=== PATIENT | male | born 1960 | race Caucasian/White ===

== ENCOUNTER 2020-08-13 11:42 | Inpatient (IN) | payer OTHER ==
[~2020-08-13] VITALS: Ht 182.9 cm; Wt 89.2 kg
[~2020-08-13 11:42] MED LIST: LISHYD1012 PO; SIMV10 PO; Zantac150 MG PO
[2020-08-13] MEDS ORDERED: ATORVASTATIN CA20 MG PO (12:04)
[2020-08-13] MEDS ORDERED: LISINOPRIL-HCT1 EACH PO (12:04)
[2020-08-13] MEDS ORDERED: ZOLPIDEM TARTRA10 MG PO (12:05)
[2020-08-13 12:28] LABS: BASOPHILS ABSOLUTE AUTO 0.07 K/mm3 (0.00-0.23); BASOPHILS PERCENT AUTO 1 % (0-2); EOSINOPHILS ABSOLUTE AUTO 0.88 K/mm3 (0.00-0.68); EOSINOPHILS PERCENT AUTO 8 % (0-6); Hemoglobin 14.3 g/dL (13.5-17.5); IMMATURE GRAN ABSOLUTE AUTO 0.05 K/mm3 (0.00-0.10); IMMATURE GRAN PERCENT AUTO 0 % (0-1); LYMPHOCYTES ABSOLUTE AUTO 2.32 K/mm3 (0.84-5.20); LYMPHOCYTES PERCENT AUTO 20 % (21-46); MONOCYTES ABSOLUTE AUTO 0.77 K/mm3 (0.16-1.47); MONOCYTES PERCENT AUTO 7 % (4-13); Mean Corpuscular HGB 31.9 pg (26.0-34.0); Mean Corpuscular HGB Conc 33.3 g/dL (31.5-36.5); Mean Corpuscular Volume 96 fL (80-100); NEUTROPHILS ABSOLUTE AUTO 7.59 K/mm3 (1.96-9.15); NEUTROPHILS PERCENT AUTO 65 % (41-73); Platelet Count 339 K/mm3 (150-400); RDW Coefficient Variation 12.5 % (11.7-14.2); RDW Standard Deviation 44.5 fL (35.1-46.3); Red Blood Cell Count 4.48 M/mm3 (4.30-5.90); White Blood Cell Count 11.68 K/mm3 (4.00-11.30)
[2020-08-13 12:48] LABS: Alanine Aminotransfer (ALT/SGP 29 U/L (12-78); Albumin, Blood 3.4 g/dL (3.4-5.0); Albumin/Globulin Ratio 0.8 (0.8-1.8); Alk Phos 80 U/L (50-136); Anion Gap 6 mmol/L (6-16); Aspartate Aminotrans (AST/SGOT 17 U/L (12-37); Bilirubin, Total 0.3 mg/dL (0.1-1.0); Blood Urea Nitrogen 15 mg/dL (8-24); Bun/Creatinine Ratio 21.2 (12.0-20.0); CO2, Blood 28 mmol/L (21-32); Calcium, Blood 9.6 mg/dL (8.5-10.1); Chloride, Blood 105 mmol/L (98-108); Creatinine, Blood 0.71 mg/dL (0.60-1.20); Globulin, Blood 4.5 g/dL (2.2-4.0); Glomerular Filtration Rate >60 (60-); Glucose, Blood 159 mg/dL (70-99); Sodium, Blood 139 mmol/L (136-145); Total Protein, Blood 7.9 g/dL (6.4-8.2)
[2020-08-13 15:29] LABS: Source, Urine Clean Catch
[2020-08-13 15:36] LABS: Appearance, Urine Clear (Clear); Bilirubin, Urine Neg (Neg); Blood, Urine 1+ (Neg); Color, Urine Yellow (P-Yellow); Glucose Qualitative, Urine Neg (Neg); Ketones, Urine Neg (Neg); Leukocyte Esterase, Urine 1+ (Neg); Nitrite, Urine Neg (Neg); Protein, Urine 1+ (Neg); Specific Gravity, Urine 1.005 (1.003-1.022); Urobilinogen, Urine NORM (Normal); pH, Urine 6.5 (5.0-8.0)
[2020-08-13 16:12] LABS: Bacteria Few /hpf; Squamous Epithelial Cells Rare /hpf (Few); White Blood Cells, Urine 0-2 /hpf (0-5)
[2020-08-13 16:27] LABS: Influenza A, PCR Negative (NEGATIVE); Influenza B, PCR Negative (NEGATIVE); Resp Syncytial Virus, PCR Negative (NEGATIVE); SARS-Cov-2 (COVID-19) PCR, MMC Negative (NEGATIVE)
--- NOTE | 2020-08-13 16:52 | NUR ---
08/13/20 1652 Keith Warner PT RECIEVED ANTIBIOTICS IN THE ER PRIOR TO ARRIVAL TO OR. CONFIRMED WITH DR CARRASCO.
--- NOTE | 2020-08-13 20:20 | NUR ---
PT ARRIVED TO FLOOR FROM PACU. PT DROWSY AND RESTLESS, RESPONDS TO VERBAL STIMULI. TEMP AND HR ELEVATED. PT DENIES CP/PRESSURE. LUNGS DIM IN BASES, 5L02 NC IN PL[address], PLAN TO TITRATE TO RA PT ULISES. TAMARA DRESSING INTACT, STOMA BEEFY RED W/SCANT SS DRNG IN BAG. LAPIDARY APPRENTICE SUMANTH UP PT EDUCATED ON USE, IVF RUNNING PER ORDERS. PT ORIENTED TO ROOM/CALL LIGHT, WILL MONITOR AND TX PER ORDERS.
[2020-08-13] MEDS ORDERED: IBUP400 PO (21:20)
--- NOTE | 2020-08-13 22:50 | NUR ---
PAIN: PT IS CONT TO STRUGGLE W/PAIN DESPITE USING APPLIANCE TECHNICIAN. PT RATES PAIN 7-8/10, RESP SHALLOW, SATS MID 90'S ON 4LNC. HR TACHY-LOW 100-1'TEENS. ATTEMPTED BREATHING EXERCISES AND NON PHARM METHODS W/MIN RELIEF. DR CARRASCO UPDATED, PT PAIN, APPLIANCE TECHNICIAN SETTINGS AND VITALS REV. NEW ORDERS REC.
[2020-08-14 04:02] LABS: BASOPHILS ABSOLUTE AUTO 0.09 K/mm3 (0.00-0.23); BASOPHILS PERCENT AUTO 1 % (0-2); Hematocrit 37.9 % (37.0-53.0); Hemoglobin 12.6 g/dL (13.5-17.5); LYMPHOCYTES PERCENT AUTO 4 % (21-46); MONOCYTES ABSOLUTE AUTO 0.69 K/mm3 (0.16-1.47); MONOCYTES PERCENT AUTO 4 % (4-13); Mean Corpuscular HGB 31.7 pg (26.0-34.0); Mean Corpuscular HGB Conc 33.2 g/dL (31.5-36.5); Mean Corpuscular Volume 96 fL (80-100); Mean Platelet Volume 8.7 fL (9.1-12.4); Platelet Count 317 K/mm3 (150-400); RDW Coefficient Variation 12.7 % (11.7-14.2); RDW Standard Deviation 44.8 fL (35.1-46.3); Red Blood Cell Count 3.97 M/mm3 (4.30-5.90); White Blood Cell Count 17.82 K/mm3 (4.00-11.30)
[2020-08-14 04:05] LABS: EOSINOPHILS PERCENT AUTO 0 % (0-6); IMMATURE GRAN ABSOLUTE AUTO 0.09 K/mm3 (0.00-0.10); IMMATURE GRAN PERCENT AUTO 1 % (0-1); NEUTROPHILS ABSOLUTE AUTO 16.25 K/mm3 (1.96-9.15); NEUTROPHILS PERCENT AUTO 91 % (41-73)
[2020-08-14 04:23] LABS: BAND PERCENT MAN 21 % (0-8); BASOPHILS PERCENT MAN 0 % (0-2); EOSINOPHILS PERCENT MAN 0 % (0-6); LYMPHOCYTES ABSOLUTE MAN 0.53 K/mm3 (0.84-5.20); LYMPHOCYTES PERCENT MAN 3 % (21-46); METAMYELOCYTE ABSOLUTE MAN 0.17 K/mm3 (0.00-0.00); METAMYELOCYTE PERCENT MAN 1 % (0-0); MONOCYTES ABSOLUTE MAN 0.17 K/mm3 (0.16-1.47); MONOCYTES PERCENT MAN 1 % (4-13); NEUTROPHILS ABSOLUTE MAN 16.92 K/mm3 (1.96-9.15); SEG NEUTROPHILS PERCENT MAN 74 % (41-73); TOTAL CELLS COUNTED 100
[2020-08-14 04:25] LABS: Anion Gap 8 mmol/L (6-16); Blood Urea Nitrogen 13 mg/dL (8-24); Bun/Creatinine Ratio 16.8 (12.0-20.0); CO2, Blood 24 mmol/L (21-32); Calcium, Blood 8.3 mg/dL (8.5-10.1); Chloride, Blood 105 mmol/L (98-108); Creatinine, Blood 0.77 mg/dL (0.60-1.20); Glomerular Filtration Rate >60 (60-); Glucose, Blood 222 mg/dL (70-99); Potassium, Blood 4.4 mmol/L (3.5-5.5); Sodium, Blood 137 mmol/L (136-145)
--- NOTE | 2020-08-14 06:35 | NUR ---
POD 1 S/P COLECTOMY+COLOSTOMY. PT VSS IMPROVED, PT AFEBRILE THIS AM, HR TRENDING 90'S, SATS 90% ON 3LNC. PT REMAINS PAINFUL, RATES PAIN 6-7/10 BUT DOES APPEAR MORE COMFORTABLE THIS AM. VALIUM GIVEN X2 FOR SPASMS, PT SLEPT FOR APPX 2 HRS AFTER MED GIVEN. ABD FIRM/DISTENDED, STOMA WNL, BT MORE ACTIVE THIS AM, ONLY SCANT SS DRNG FROM OSTOMY, NO FLATUS. PT HAD NO C/O N/V. TAMARA DRESSING INTACT W/SMALL AMT SS DRNG. STOLL PATANT DRNG YELLOW URINE. CIWA MAX 6 THIS SHIFT. PT UP OOB ONCE, ULISES FAIR. IVF AND ABX CONT PER ORDERS, PT USING GLASS BEVELLER APPROPRIATELY, CONT OX IN PLACE.
--- NOTE | 2020-08-14 16:43 | NUR ---
SUMMARY: PT IS POD1 SIGMOID COLECTOMY. NO ACUTE CHANGE TODAY. VSS, PT HAS BEEN DROWSY TODAY BUT AWAKENS TO VOICE EASILY. SURGICAL SITE WNL. STOLL DRAINING. NO GAS OR OUTPUT NOTED FROM OSTOMY, APPLIANCE IS SECURE. PT ABLE TO AMBULATE TO RECLINER TODAY WITH 1 ASSIST AND FWW. DILAUDID LEAD DRIVER IS INFUSING, PT REPORTS THAT IT IS MANAGING PAIN BETTER THAN THE FENTANYAL. RESPIRATIONS ARE SHALLOW, I.S. AND DEEP BREATHE ENCOURAGED, CONTINUIOUS BI OX IN PLACE. NO ACUTE CONCERNS AT THIS TIME, WILL CTM AND REPORT TO NOC RN.
[2020-08-15 04:15] LABS: BASOPHILS ABSOLUTE AUTO 0.06 K/mm3 (0.00-0.23); BASOPHILS PERCENT AUTO 0 % (0-2); EOSINOPHILS ABSOLUTE AUTO 0.05 K/mm3 (0.00-0.68); EOSINOPHILS PERCENT AUTO 0 % (0-6); Hematocrit 37.6 % (37.0-53.0); Hemoglobin 12.6 g/dL (13.5-17.5); IMMATURE GRAN PERCENT AUTO 2 % (0-1); LYMPHOCYTES ABSOLUTE AUTO 1.17 K/mm3 (0.84-5.20); LYMPHOCYTES PERCENT AUTO 7 % (21-46); MONOCYTES ABSOLUTE AUTO 0.55 K/mm3 (0.16-1.47); MONOCYTES PERCENT AUTO 3 % (4-13); Mean Corpuscular HGB 32.7 pg (26.0-34.0); Mean Corpuscular HGB Conc 33.5 g/dL (31.5-36.5); Mean Corpuscular Volume 98 fL (80-100); Mean Platelet Volume 8.7 fL (9.1-12.4); NEUTROPHILS ABSOLUTE AUTO 15.36 K/mm3 (1.96-9.15); NEUTROPHILS PERCENT AUTO 88 % (41-73); Platelet Count 334 K/mm3 (150-400); RDW Standard Deviation 46.4 fL (35.1-46.3); Red Blood Cell Count 3.85 M/mm3 (4.30-5.90); White Blood Cell Count 17.49 K/mm3 (4.00-11.30)
[2020-08-15 04:27] LABS: Anion Gap 7 mmol/L (6-16); Blood Urea Nitrogen 14 mg/dL (8-24); CO2, Blood 28 mmol/L (21-32); Chloride, Blood 103 mmol/L (98-108); Creatinine, Blood 0.82 mg/dL (0.60-1.20); Glomerular Filtration Rate >60 (60-); Glucose, Blood 134 mg/dL (70-99); Phosphorus, Blood 2.6 mg/dL (2.5-4.9); Potassium, Blood 3.8 mmol/L (3.5-5.5); Sodium, Blood 138 mmol/L (136-145)
--- NOTE | 2020-08-15 07:37 | NUR ---
POD 2 S/P COLECTOMY+COLOSTOMY. PT VSS T/O NIGHT. 4L O2 IN [place] TO KEEP SATS >90%. PT USING I/S AT BEDSIDE, COUGH MORE PRODUCTIVE THIS AM. NO CHANGE IN DRNG ON TAMARA DRESSING; SEAL AND SX INTACT. SMALL AMT SS DRNG FROM OSTOMY APPLIANCE; ABD DISTENDED, BT HYPO, NO FLATUS YET. PT ULISES ICE CHIPS, NO C/O N/V. PAIN BETTER MANAGED W/DILAUDID CLASSIFICATION CONTROL CLERK, VALIUM GIVEN X1. STOLL PATANT DRNG DARK YELLOW URINE. PT STOOD UP TO SIDE OF BED X2, ULISES FAIR. CIWA MAX 3 THIS SHIFT. IVF AND ABX CONT PER ORDERS.
--- NOTE | 2020-08-15 17:42 | NUR ---
SHIFT SUMMARY PT POD 2 COLECTOMY W/COLOSTOMY. SMALL AMT SANGUINEOUS FLUID PRESENT IN BAG, NO GAS, STOMA PINK. PAIN MANAGED WITH DILAUDID EXTRUSION BENDER, RATES PAIN 3/10 T/O SHIFT. CIWA SCORE 3. PT UP TO CHAIR 1 PERSON MOD ASSIST WITH LINES. STOLL PATENT, DRAINING RUST COLORED URINE. IVF RUNNING PER EMAR. PT NPO W/ICE CHIPS AT THIS TIME.
--- NOTE | 2020-08-16 07:57 | NUR ---
DILAUDID FACULTY DEAN CONTINUOUS DOSE DC'D PER DR CARRASCO ORDER R/T SEDATION.
--- NOTE | 2020-08-16 09:40 | NUR ---
PT WITH INCREASED ANXIETY/AGGITATION THIS AM. CIWA 4. PT MEDICATED WITH 5MG VALIUM PER EMAR PER PT REQUEST.
--- NOTE | 2020-08-16 10:25 | NUR ---
PT AMBULATED IN HALLWAY USING FWW W/SBA FROM STAFF. PT HAS SOME SOB W/EXCERTION, O2 SAT 94% ON RA PRIOR TO STARTING WALK, 88% ON RETURN TO ROOM. 1L NC APPLIED, SATS STABLE 92%.
--- NOTE | 2020-08-16 18:22 | NUR ---
SHIFT SUMMARY PT POD 3 COLECTOMY W/OSTOMY PLACEMENT. PAIN MANAGED WITH DEMAND SURVEY SUPERINTENDENT. ABD DISTENDED WITH SCANT AMT SANGUINOUS OUTPUT FROM OSTOMY , 0 GAS OUTPUT, DENIES NAUSEA. PT AMBULATED IN HALLWAY TWICE THIS SHIFT WITH STAFF, UP TO CHAIR. PT HAS HAD AN INCREASE IN ANXIETY/AGGITATION-CIWA 5, MEDICATED WITH VALIUM PER EMAR. IV ABX AND FLUIDS PER EMAR. NPO WITH SMALL AMTS ICE CHIPS.
--- NOTE | 2020-08-17 03:20 | NUR ---
SHIFT SUMMARY: PT POD#4 FOR A SIGMOID COLECTOMY W/OSTOMY. ABD REMAINS DISTENDED AND FIRM. ABSENT BT THROUGHOUT. SCANT AMOUNT OF SANGUINOUS DRG IN BAG. NO FLATUS THIS SHIFT. PT ENCOURAGED TO AMBULATE, HOWEVER STATES THAT IT IS DIFFICULT D/T IV AND STOLL CATHETER. PT REMINDED THAT STAFF IS AVAILABLE TO ASSIST. UP IN ROOM INDEPENDENTLY. PT NPO EXCEPT FOR ICE CHIPS. DENIES N/V. PT CONCERNED ABOUT LACK OF NUTRITION THE PAST WEEK. O2 88-89% ON RA IN BEGINNING OF SHIFT. 3LO2 VIA NC APPLIED. O2 NOW 94-95%. PT TACHY AT TIMES RANGING FROM 110-115. CIWA BETWEEN 2-5. PT ANXIOUS AND SOMEWHAT AGITATED FIRST HALF OF SHIFT. MILD TREMORS NOTED. PT REFUSING LIBRIUM AND REPORTS HE IS ALREADY GETTING ENOUGH MEDICATIONS. PAIN BEING MANAGED WITH DILAUDID ART SPECIALIST. IVF INFUSING PER ORDERS. STOLL DRAINING DARK YELLOW URINE. 475CC EMPTIED.
[2020-08-17 05:47] LABS: BASOPHILS ABSOLUTE AUTO 0.04 K/mm3 (0.00-0.23); BASOPHILS PERCENT AUTO 0 % (0-2); Hemoglobin 12.9 g/dL (13.5-17.5); LYMPHOCYTES ABSOLUTE AUTO 1.18 K/mm3 (0.84-5.20); LYMPHOCYTES PERCENT AUTO 9 % (21-46); MONOCYTES ABSOLUTE AUTO 0.72 K/mm3 (0.16-1.47); MONOCYTES PERCENT AUTO 5 % (4-13); Mean Corpuscular HGB 31.5 pg (26.0-34.0); Mean Corpuscular HGB Conc 33.9 g/dL (31.5-36.5); Mean Platelet Volume 8.5 fL (9.1-12.4); Platelet Count 380 K/mm3 (150-400); RDW Coefficient Variation 12.6 % (11.7-14.2); RDW Standard Deviation 43.2 fL (35.1-46.3); Red Blood Cell Count 4.09 M/mm3 (4.30-5.90); White Blood Cell Count 13.44 K/mm3 (4.00-11.30)
[2020-08-17 05:48] LABS: EOSINOPHILS ABSOLUTE AUTO 0.15 K/mm3 (0.00-0.68); EOSINOPHILS PERCENT AUTO 1 % (0-6); IMMATURE GRAN ABSOLUTE AUTO 0.12 K/mm3 (0.00-0.10); IMMATURE GRAN PERCENT AUTO 1 % (0-1); Mean Corpuscular Volume 93 fL (80-100); NEUTROPHILS ABSOLUTE AUTO 11.23 K/mm3 (1.96-9.15); NEUTROPHILS PERCENT AUTO 84 % (41-73)
[2020-08-17 06:08] LABS: Anion Gap 11 mmol/L (6-16); Blood Urea Nitrogen 9 mg/dL (8-24); Bun/Creatinine Ratio 13.8 (12.0-20.0); CO2, Blood 27 mmol/L (21-32); Calcium, Blood 9.2 mg/dL (8.5-10.1); Chloride, Blood 98 mmol/L (98-108); Creatinine, Blood 0.65 mg/dL (0.60-1.20); Glomerular Filtration Rate >60 (60-); Glucose, Blood 128 mg/dL (70-99); Potassium, Blood 3.5 mmol/L (3.5-5.5); Sodium, Blood 136 mmol/L (136-145)
--- NOTE | 2020-08-17 07:10 | NUR ---
pt sleeping wakes to verbal stimuli req to eat no flatus talked about having gum or hard candy until he has gas
--- NOTE | 2020-08-17 09:32 | NUR ---
pt stated he had no nausea before large emesis sitting up on edge of the bed dr guevara by earlier and encouraged pt to get a ngt do to the lg amt of abd dist of the pt only have occ belching pt's dad kaela also called update given
--- NOTE | 2020-08-17 11:18 | NUR ---
PT STATED NO EMESIS SINCE THIS AM MEDS GIVEN SCHED PT KEEPS GOING FROM SITTING ON EDGE OF THE BED TO LAYING
--- NOTE | 2020-08-17 15:00 | NUR ---
DR CARRASCO PLACED NGT PT HAD 300 ML EMESIS HAD ADDITONAL 1500 ML IN CANNISTER X2
--- NOTE | 2020-08-17 18:58 | NUR ---
ENCOURAGED PT TO GET OOB INTO CHAIR WITH NGT
--- NOTE | 2020-08-17 21:17 | NUR ---
Vitals taken at 1999, the oxygen was reported to be 20%, was false and is recharted at 90%.
[2020-08-18 05:42] LABS: BASOPHILS ABSOLUTE AUTO 0.04 K/mm3 (0.00-0.23); BASOPHILS PERCENT AUTO 0 % (0-2); EOSINOPHILS ABSOLUTE AUTO 0.43 K/mm3 (0.00-0.68); EOSINOPHILS PERCENT AUTO 4 % (0-6); Hematocrit 33.7 % (37.0-53.0); Hemoglobin 11.5 g/dL (13.5-17.5); IMMATURE GRAN ABSOLUTE AUTO 0.13 K/mm3 (0.00-0.10); IMMATURE GRAN PERCENT AUTO 1 % (0-1); LYMPHOCYTES ABSOLUTE AUTO 1.07 K/mm3 (0.84-5.20); LYMPHOCYTES PERCENT AUTO 10 % (21-46); MONOCYTES ABSOLUTE AUTO 0.76 K/mm3 (0.16-1.47); MONOCYTES PERCENT AUTO 7 % (4-13); Mean Corpuscular HGB 31.4 pg (26.0-34.0); Mean Corpuscular HGB Conc 34.1 g/dL (31.5-36.5); Mean Corpuscular Volume 92 fL (80-100); Mean Platelet Volume 8.6 fL (9.1-12.4); NEUTROPHILS ABSOLUTE AUTO 8.62 K/mm3 (1.96-9.15); NEUTROPHILS PERCENT AUTO 78 % (41-73); Platelet Count 378 K/mm3 (150-400); RDW Coefficient Variation 12.7 % (11.7-14.2); RDW Standard Deviation 42.8 fL (35.1-46.3); Red Blood Cell Count 3.66 M/mm3 (4.30-5.90); White Blood Cell Count 11.05 K/mm3 (4.00-11.30)
[2020-08-18 06:01] LABS: Anion Gap 6 mmol/L (6-16); Blood Urea Nitrogen 7 mg/dL (8-24); CO2, Blood 29 mmol/L (21-32); Calcium, Blood 8.5 mg/dL (8.5-10.1); Chloride, Blood 100 mmol/L (98-108); Glomerular Filtration Rate >60 (60-); Glucose, Blood 153 mg/dL (70-99); Potassium, Blood 3.3 mmol/L (3.5-5.5); Sodium, Blood 135 mmol/L (136-145)
--- NOTE | 2020-08-18 06:39 | NUR ---
SUMMARY PT WITH MINIMAL COMPLIANCE REGARDING REPOSITIONING IN BED AND PULMONARY TOILET.LS DIMINISHED AND LOW GRADE TEMP TONIGHT.CONT TO ENC AND DISCUSSED RISKS.ALSO DISCUSSED IMPORTANCE OF SKIN CARE AND RISK PT AGAIN ALLOWING MINIMAL CARE.DID ALLOW THIS RN AND BUSINESS OBJECTS ARCHITECT TO REPOSITION TO L SIDE X1 AND PLACE MEPILEX TO SACRUM/COCCYX DUE TO MILD REDNESS AND A SCRATCH NOTED.PT VERB EXPECTS NG TUBE OUT TODAY ALTHOUGH ABD GREATLY DISTENDED WITH NO BTS AND NG OUTPUT THIS SHIFT 1400ML.
--- NOTE | 2020-08-18 07:56 | NUR ---
REPOSITIONING PT WAS ABLE TO USE HIS LEGS TO ASSIST STAFF TO SCOOT HIM UP IN BED. PT WAS ENCOURAGED TO USE THAT STRENGTH TO REPOSITIONG T/O THE DAY TO PREVEN SKIN BREAKDOWN. WILL CONTINUE TO MONITOR AND ASSIST WITH POSITIONING NEEDED.
--- NOTE | 2020-08-18 08:33 | NUR ---
patient gave permission to give care on 08/18/20.
--- NOTE | 2020-08-18 19:07 | NUR ---
SHIFT SUMMARY PT IS POD#4 FROM SIGMOID COLECTOMY. NG TUBE REMAINS IN PLACE. PT DENIES PASSING FLATUS, BOWEL SOUNDS HYPOACTIVE. PT HAS AMBULATED WITH STAND BY ASSIST IN THE HALWAYS. PAIN MANAGED WITH COMPUTERIZED TABLE CUTTER AT THIS TIME. VSS. WILL MONITOR UNTIL REPORT TO ONCOMING RN.
--- NOTE | 2020-08-19 07:53 | NUR ---
STOLL REMOVED PROCEDURE EXPLAINED TO PATIENT. STOLL CATHETER REMOVED AT [address] CARRASCO'S ORDER. PT TOLERATED. WILL MONITOR FOR VOID.
--- NOTE | 2020-08-19 08:12 | NUR ---
SUMMARY PT REFUSES TO REPOSITION IN BED, BUT OCC SITS ON EDGE OF BED AND AMBULATE IN ROOM.CONT WITH LARGE VOLUME OUT NG. HAS BROWN STOOL VIA OSTOMY.STOLL PATENT. PT C/O BACK PAIN AND WAS OFFERED EGGCRATE MATTRESS, BUT REFUSED. ALSO ENC OOB AND OR RECLINER CHAIR BUT REEFUSED.STATES HE WANTS HIS ORCHID TRANSPLANTER TO BE CHANGED TO HIS PREVIOUS CONTINUOUS MODE.I DISCUSSED NARCOTICS SLOWING EFFECT ON INTESTINES.PT APPEARING DISINTERESTED IN THIS INFORMATION. I ADVISED HIM I WILL MAKE NOTE OF HIS REQUEST IN CHART,AND ALSO HAVE DAY RN ADVISE DOCTOR OF HIS REQUEST ON ROUNDS BUT NOT LIKELY TO OBTAIN THIS ORDER.
--- NOTE | 2020-08-19 13:12 | NUR ---
OSTOMY APPLIANCE CHANGED PT'S OSTOMY APPLIANCE BEGAN TO LEAK UNDER TAMARA DRESSING. DRESSING WAS REMOVED WOUND CLEANSED. SKIN AROUND STOMA CLEANSED. SKIN BARRIER APPLIED. NEW OSTOMY APPLIANCE AND DRESSING APPLIES. 2 3/4 OVAL OSTOMY APPLIANCE USED WITH NO NEED FOR ADJUSTMENTS.
--- NOTE | 2020-08-19 14:05 | NUR ---
NG TUBE CLAMPED. WILL MONITOR FOR NAUSEA.
--- NOTE | 2020-08-20 04:23 | NUR ---
SHIFT SUMMARY POD#7. AAOX4. DISCOMFORT CONTROLLED WITH DILAUDID PRIMER EXPEDITOR AND DRIER. NO NAUSEA/EMESIS. ABD INCISION WITH TAMARA C/D/I. OSTOMY CHANGED YESTARDAY PER DAY SHIFT RN, NO OUTPUT THIS SHIFT. ABD DISTENDED/FIRM. NGT CLAMPED THIS SHIFT, TOLERATING SIPS CLEARS. IVF + ABX PER ORDERS. PT RESTING WELL THIS NOC SHIFT. PT NEEDS ENCOURAGEMENT TO AMBULATE TODAY. NO ACUTE CHANGES OVER NIGHT. CURRENTLY PT RESTING IN BED WITH CALL LIGHT IN REACH.
[2020-08-20 09:21] LABS: Hemoglobin 11.8 g/dL (13.5-17.5); Mean Corpuscular HGB 31.2 pg (26.0-34.0); Mean Corpuscular HGB Conc 32.8 g/dL (31.5-36.5); Mean Corpuscular Volume 95 fL (80-100); Mean Platelet Volume 8.7 fL (9.1-12.4); Platelet Count 458 K/mm3 (150-400); RDW Coefficient Variation 12.7 % (11.7-14.2); RDW Standard Deviation 44.8 fL (35.1-46.3); Red Blood Cell Count 3.78 M/mm3 (4.30-5.90); White Blood Cell Count 10.38 K/mm3 (4.00-11.30)
[2020-08-20 09:28] LABS: Anion Gap 5 mmol/L (6-16); Blood Urea Nitrogen 6 mg/dL (8-24); Bun/Creatinine Ratio 8.7 (12.0-20.0); CO2, Blood 28 mmol/L (21-32); Calcium, Blood 9.1 mg/dL (8.5-10.1); Chloride, Blood 102 mmol/L (98-108); Creatinine, Blood 0.69 mg/dL (0.60-1.20); Glomerular Filtration Rate >60 (60-); Glucose, Blood 135 mg/dL (70-99); Potassium, Blood 3.8 mmol/L (3.5-5.5); Sodium, Blood 135 mmol/L (136-145)
--- NOTE | 2020-08-20 18:40 | NUR ---
SHIFT SUMMARY PT A&OX4, POD7 SIG COL - JUDIE ARNIE, /OSTOMY W/FLATUS & 400 MLS BROWN OUT THIS SHIFT. NG TUBE W/900 OUT THIS SHIFT. PT TAKING IN ICE CHIPS/SIPS/CLEAR ENSURE/POPSICLES. PAIN MANAGED WITH DILAUDID TELEPHONE ANSWERER. IVF@100 MLS/HR. PT AMBULATED IN HALLWAY X2. VOIDING WELL, URINAL. WILL REPORT TO ONCOMING NOC RN.
--- NOTE | 2020-08-21 04:11 | NUR ---
SHIFT SUMMARY POD#8 SIGMOID COLECTOMY. AAOX4. DISCOMFORT CONTROLLED WITH DILAUDID TEXTILE BAG SEWER. NO NAUSEA/EMESIS. ABD INCISION WITH JUDIE MANAGER LAND C/D/I. OSTOMY SECURE WITH MODERATE AMOUNTS OF LIQUID BROWN OUT + INCREASING AMOUNTS OF GAS. ABD DISTENDED, PT REPORTING DECREASED OVER LAST 12 HRS. IVF + ABX PER ORDERS. PT UP AMBULATING IN HALLS THIS NOC SHIFT, TOLERATED WELL. PT WITH MINIMAL REST THIS NOC SHIFT, WILL ENCOURAGE REST FOR REMAINDER OF SHIFT.
[2020-08-21 05:13] LABS: Anion Gap 7 mmol/L (6-16); Blood Urea Nitrogen 5 mg/dL (8-24); CO2, Blood 28 mmol/L (21-32); Chloride, Blood 99 mmol/L (98-108); Creatinine, Blood 0.71 mg/dL (0.60-1.20); Glomerular Filtration Rate >60 (60-); Glucose, Blood 120 mg/dL (70-99); Potassium, Blood 3.3 mmol/L (3.5-5.5); Sodium, Blood 134 mmol/L (136-145)
--- NOTE | 2020-08-21 15:57 | NUR ---
SHIFT SUMMARY PT A&OX4, VSS/RA, TELE SB @ 56 BPM. POD8 SIG COL W/OSTOMY, MOD AMT STOOL OUT THIS SHIFT; PT EMPTIED OSTOMY BAG ON HIS OWN. NG TUBE OUT/DENIES N&V/ULISES PO CLEAR LIQUID DIET, ABD MOD DISTENDED. AMBULATING IN ROOM/HALLWAY. VOIDING WELL. PAIN MANAGED WITH CASUALTY INSURANCE CLAIM ADJUSTER-DILAUDID. WILL REPORT TO ONCOMING NOC RN.
--- NOTE | 2020-08-22 04:56 | NUR ---
SHIFT SUMMARY POD#9. AAOX4. DISCOMFORT CONTROLLED WITH DILAUDID WINDOW DRAPER. NO NAUSEA/EMESIS. ABD INCISION WITH JUDIE CLEAN/APPROXIMATED. OSTOMY SECURE WITH LARGE AMOUNTS OF LIQUID SOFT GREEN OUT. INDEPENDENT IN ROOM + OUT IN HALLS AMBULATING. ABD DISTENSION CONTINUES, PT REPORTINGS FEELING "BETTER" THIS AM. NEW IV THIS SHIFT. PT ANXIOUS R/T PAIN CONTROL AT HOME, DECREASED ANXIETY WITH CONVERSATION. PT RESTING INTERMITTENTLY THIS AM.
--- NOTE | 2020-08-22 11:39 | NUR ---
AMBULATING IN O[facility]
--- NOTE | 2020-08-22 17:15 | NUR ---
SUMMARY NO ACUTE CHANGES T/O SHIFT. PT SALINE LOCKED AND CHANGED TO PO PAIN MEDS. PAIN SEEMS ADEQUATELY CONTROLLED PER ORDERS. TOLERATED SMALL AMOUNT REGULAR FOOD FOR BREAKFAST AND LUNCH. AMBULATES INDEPENDENTLY IN HALLS. CHANGED APPLIANCE W/PT TODAY, EDUCATING ON PROCESS. PT EMPTING AND BURPING APPLIANCE INDEPENDENTLY. CALL LIGHT IN REACH.
[2020-08-23] MEDS ORDERED: Percocet 5-3251 EACH PO (09:41)
--- NOTE | 2020-08-23 10:35 | NUR ---
discharged DC'D IV, CATHETER INTACT. REVIEWED DC INSTRUCTIONS W/PT; SEEMED UNINTERESTED. WHEN ADVISED ON EDUCATIONAL RESOURCES ONLINE FOR OSTOMIES, PT STATED "I KNOW ALL ABOUT IT". MEDICATED PER ORDERS FOR PAIN. PROVIDED 3 SETS OF OSTOMY CHANGES AND SUPPLIES. PT LEFT UNIT IN WC W/POSSESSIONS, SUPPLIES AND DC PAPERWORK IN HAND TO RIDE WAITING OUTSIDE.
== END 2020-08-23 10:44 | disposition home or self-care (01) | DRG 853 ==
LOC: ER 11:42 → SURS 11:43
PROVIDERS: Emergency Medicine; Surgery; ADMIT Surgery
PROC: 0DTN0ZZ Resection of Sigmoid Colon, Open Approach (ICD-10-PCS; principal; 2020-08-13 14:15)
PROC: 0D1M0Z4 Bypass Descending Colon to Cutaneous, Open Approach (ICD-10-PCS; 2020-08-13 14:15)
DX: A41.9 Sepsis, unspecified organism (principal); K65.9 Peritonitis, unspecified; K57.20 Diverticulitis of large intestine with perforation and abscess without bleeding; N32.1 Vesicointestinal fistula; E78.5 Hyperlipidemia, unspecified; F17.210 Nicotine dependence, cigarettes, uncomplicated; I10 Essential (primary) hypertension; Z20.822 Contact with and (suspected) exposure to COVID-19; E87.6 Hypokalemia; K66.8 Other specified disorders of peritoneum
CPT/HCPCS: 0241U; 36415; 36416; 71045; 74177; 80048; 80053; 81001; 83605; 83690; 83735; 84100; 85025; 85027; 87040; 87086; 88307; 93005; 93010; 94762; 96361; 96365-59; 96375; 96376; 97110; 97116; 97162; 97165; 97530; 97535; 99285-25; A9270; J1100; J1170; J1650; J1885; J2250; J2405; J2543; J2704; J2710; J3010; J3360; J3411; J3475; J3480; J7030; J7042; J7120; Q9967

== ENCOUNTER 2020-12-27 12:51 | Day surgery (SDC) | payer OTHER ==
[~2020-12-27] VITALS: Ht 182.9 cm; Wt 79.6 kg
[~2020-12-27 12:51] MED LIST changes: +ATORVASTATIN CA20 MG PO; +IBUP400 PO; +LISINOPRIL-HCT1 EACH PO; +Percocet 5-3251 EACH PO; +ZOLPIDEM TARTRA10 MG PO
== END 2020-12-27 14:51 | disposition home or self-care (01) ==
LOC: ORSCSDS 12:51
PROVIDERS: Surgery
PROC: 0DJD8ZZ Inspection of Lower Intestinal Tract, Via Natural or Artificial Opening Endoscopic (ICD-10-PCS; principal; 2020-12-27 14:30)
PROC: 0DBM8ZX Excision of Descending Colon, Via Natural or Artificial Opening Endoscopic, Diagnostic (ICD-10-PCS; principal; 2020-12-27 14:30)
DX: K57.20 Diverticulitis of large intestine with perforation and abscess without bleeding (principal); D12.4 Benign neoplasm of descending colon; Z93.3 Colostomy status; K62.89 Other specified diseases of anus and rectum; I10 Essential (primary) hypertension; K21.9 Gastro-esophageal reflux disease without esophagitis; F17.210 Nicotine dependence, cigarettes, uncomplicated; Z79.899 Other long term (current) drug therapy
CPT/HCPCS: 82947; 88305; J2704; J7120

== ENCOUNTER → 2021-01-25 | Outpatient (CLI) | payer OTHER ==
[2021-01-25 16:06] LABS: Alanine Aminotransfer (ALT/SGP 33 U/L (12-78); Albumin, Blood 4.2 g/dL (3.4-5.0); Albumin/Globulin Ratio 1.2 (0.8-1.8); Alk Phos 53 U/L (50-136); Anion Gap 4 mmol/L (6-16); Aspartate Aminotrans (AST/SGOT 18 U/L (12-37); Blood Urea Nitrogen 14 mg/dL (8-24); Bun/Creatinine Ratio 17.8 (12.0-20.0); CHOL/HDL RATIO 2.8; CO2, Blood 30 mmol/L (21-32); Calcium, Blood 9.3 mg/dL (8.5-10.1); Chloride, Blood 103 mmol/L (98-108); Cholesterol 190 mg/dL (50-200); Creatinine, Blood 0.79 mg/dL (0.60-1.20); Globulin, Blood 3.4 g/dL (2.2-4.0); Glomerular Filtration Rate >60 (60-); Glucose, Blood 110 mg/dL (70-99); HDL Cholesterol 68 mg/dL (>39); LDL/HDL RATIO 1.4; Low Density Lipoprotein Chol 94 mg/dL (0-110); Potassium, Blood 4.4 mmol/L (3.5-5.5); Sodium, Blood 137 mmol/L (136-145); Total Protein, Blood 7.6 g/dL (6.4-8.2); Triglycerides 139 mg/dL (30-160); Very Low Density Lipoprot Chol 27 mg/dL (6-32)
[2021-01-25 16:29] LABS: BASOPHILS ABSOLUTE AUTO 0.09 K/mm3 (0.00-0.23); BASOPHILS PERCENT AUTO 1 % (0-2); EOSINOPHILS ABSOLUTE AUTO 1.38 K/mm3 (0.00-0.68); EOSINOPHILS PERCENT AUTO 15 % (0-6); Hematocrit 41.7 % (37.0-53.0); Hemoglobin 14.4 g/dL (13.5-17.5); IMMATURE GRAN ABSOLUTE AUTO 0.04 K/mm3 (0.00-0.10); IMMATURE GRAN PERCENT AUTO 0 % (0-1); LYMPHOCYTES ABSOLUTE AUTO 2.34 K/mm3 (0.84-5.20); LYMPHOCYTES PERCENT AUTO 26 % (21-46); MONOCYTES ABSOLUTE AUTO 0.73 K/mm3 (0.16-1.47); MONOCYTES PERCENT AUTO 8 % (4-13); Mean Corpuscular HGB 31.5 pg (26.0-34.0); Mean Corpuscular HGB Conc 34.5 g/dL (31.5-36.5); Mean Corpuscular Volume 91 fL (80-100); Mean Platelet Volume 9.6 fL (9.1-12.4); NEUTROPHILS ABSOLUTE AUTO 4.51 K/mm3 (1.96-9.15); NEUTROPHILS PERCENT AUTO 50 % (41-73); Platelet Count 258 K/mm3 (150-400); RDW Coefficient Variation 13.2 % (11.7-14.2); RDW Standard Deviation 44.6 fL (35.1-46.3); Red Blood Cell Count 4.57 M/mm3 (4.30-5.90); White Blood Cell Count 9.09 K/mm3 (4.00-11.30)
== END | disposition home or self-care (01) ==
LOC: LAB 09:20 → LAB SHORT 09:20
PROVIDERS: Family Medicine
DX: Z12.5 Encounter for screening for malignant neoplasm of prostate (principal); E78.2 Mixed hyperlipidemia; E11.9 Type 2 diabetes mellitus without complications; I10 Essential (primary) hypertension
CPT/HCPCS: 80053; 80061; 83036; 85025; G0103

== ENCOUNTER → 2021-01-30 | Outpatient (CLI) | payer OTHER ==
[2021-02-01 04:08] LABS: COTININE Negative ng/mL (Cutoff=300)
== END | disposition home or self-care (01) ==
LOC: LAB 11:28 → LAB SHORT 11:28 → OLS 11:28
PROVIDERS: Surgery
DX: Z01.812 Encounter for preprocedural laboratory examination (principal); Z87.891 Personal history of nicotine dependence

== ENCOUNTER 2021-05-16 10:40 | Day surgery (SDC) | payer OTHER ==
[~2021-05-16] VITALS: Ht 182.9 cm; Wt 82.1 kg
[2021-05-16] MEDS ORDERED: METF500 (11:05)
--- NOTE | 2021-05-16 12:36 | NUR ---
05/16/21 1236 Lela Kauffman 6ML SALINE INJECTED FOR DESCENDING COLON POLYPECTOMY. 2ML TATTOO MARKER INJECTED AT POLYPECTOMY SITE.
== END 2021-05-16 13:01 | disposition home or self-care (01) ==
LOC: ORSCSDS 10:40 → ORD 12:00 → ORSCSDS 12:00
PROVIDERS: Surgery
PROC: 0DBM8ZX Excision of Descending Colon, Via Natural or Artificial Opening Endoscopic, Diagnostic (ICD-10-PCS; principal; 2021-05-16 12:00)
PROC: 3E0H8GC Introduction of Other Therapeutic Substance into Lower GI, Via Natural or Artificial Opening Endoscopic (ICD-10-PCS; principal; 2021-05-16 12:00)
DX: K57.20 Diverticulitis of large intestine with perforation and abscess without bleeding (principal); Z43.3 Encounter for attention to colostomy; Z86.010 Personal history of colon polyps; D12.4 Benign neoplasm of descending colon; E78.5 Hyperlipidemia, unspecified; I10 Essential (primary) hypertension; Z79.899 Other long term (current) drug therapy; F17.210 Nicotine dependence, cigarettes, uncomplicated
CPT/HCPCS: 82947; 88305; J2704

== ENCOUNTER 2021-05-17 05:39 | Inpatient (IN) | payer OTHER ==
[~2021-05-17] VITALS: Ht 182.9 cm; Wt 83.1 kg
[~2021-05-17 05:39] MED LIST changes: +METF500
--- NOTE | 2021-05-17 06:21 | NUR ---
Ambulatory in [facility] warming gown applied. Surgical site prepped with 2% Chlorhexidine cloth wipe. History, Chart, Medications and Allergies reviewed before start of procedure.Lungs clear T/O to Auscultation. Patient confirms NPO status and agrees with scheduled surgery. Pre-Op teaching done. Pt verbalizes understanding. Patient reports completing Chlorhexadine shower X2 prior to admission to hospital.
--- NOTE | 2021-05-17 09:20 | NUR ---
05/17/21 0920 Joselyn Donovan PATIENT POSITIONED IN THE LOW LITHOTOMY POSITION. [id number] PADDED, POSITIONED AND SECURED. GILBERTO. LOWER EXTREMITIES POSITIONED SIMULTANEOUSLY. ABDOMINAL PREP PERFORMED BY ARACELI RIOJAS RN AND LOWER GENTEITILIA PREP PERFORMED BY Saba DONOVAN, EN
--- NOTE | 2021-05-17 17:28 | NUR ---
PATIENT ARRIVED TO THE FLOOR AT 1200 TODAY VIA STRECTHER FROM PACU. PATIENT HAD COLOSTOMY TAKEDOWN WITH DR CARRASCO. TAMARA DRESSING X 2 TO ABDOMEN-DRESSINGS HAVE SOME DRAINAGE NOTED AND ARE MARKED, DR CARRASCO IS AWARE. PATIENT HAS STOLL CATH THAT IS VERY BOTHERSOME TO PATIENT, DRAINING CLEAR YELLOW URINE TO DRAINAGE BAG. REMAINS ON IVF. NO SIGNS OR SYMPTOMS ACUTE DISTRESS NOTED. CALL LIGHT AND WATER IN EASY REACH. ABLE TO MAKE NEEDS AND WANTS KNOWN. AAO X 4. PATIENT AWAKE AND ALERT. FENTANYL BAND REAMER MACHINE OPERATOR EFFECTIVE FOR PAIN. PATIENT STOOD AT BEDSIDE WITH WALKER FOR STABIITY, COMPLAINED OF SOME DIZZINESS. PATIENT STOOD ON OWN WITH NO ASSISTANCE FROM STAFF. WILL MONITOR.
[2021-05-18 05:29] LABS: BASOPHILS ABSOLUTE AUTO 0.03 K/mm3 (0.00-0.23); BASOPHILS PERCENT AUTO 0 % (0-2); EOSINOPHILS ABSOLUTE AUTO 0.27 K/mm3 (0.00-0.68); EOSINOPHILS PERCENT AUTO 2 % (0-6); Hematocrit 38.4 % (37.0-53.0); Hemoglobin 12.9 g/dL (13.5-17.5); IMMATURE GRAN ABSOLUTE AUTO 0.05 K/mm3 (0.00-0.10); IMMATURE GRAN PERCENT AUTO 0 % (0-1); LYMPHOCYTES ABSOLUTE AUTO 1.54 K/mm3 (0.84-5.20); LYMPHOCYTES PERCENT AUTO 12 % (21-46); MONOCYTES ABSOLUTE AUTO 1.06 K/mm3 (0.16-1.47); MONOCYTES PERCENT AUTO 8 % (4-13); Mean Corpuscular HGB 32.8 pg (26.0-34.0); Mean Corpuscular HGB Conc 33.6 g/dL (31.5-36.5); Mean Corpuscular Volume 98 fL (80-100); Mean Platelet Volume 9.3 fL (9.1-12.4); NEUTROPHILS ABSOLUTE AUTO 10.02 K/mm3 (1.96-9.15); NEUTROPHILS PERCENT AUTO 77 % (41-73); Platelet Count 250 K/mm3 (150-400); RDW Coefficient Variation 12.8 % (11.7-14.2); RDW Standard Deviation 45.9 fL (35.1-46.3); Red Blood Cell Count 3.93 M/mm3 (4.30-5.90); White Blood Cell Count 12.97 K/mm3 (4.00-11.30)
[2021-05-18 06:00] LABS: Anion Gap 8 mmol/L (6-16); Blood Urea Nitrogen 18 mg/dL (8-24); Bun/Creatinine Ratio 16.1 (12.0-20.0); CO2, Blood 26 mmol/L (21-32); Calcium, Blood 8.2 mg/dL (8.5-10.1); Chloride, Blood 103 mmol/L (98-108); Creatinine, Blood 1.12 mg/dL (0.60-1.20); Glomerular Filtration Rate >60 (60-); Glucose, Blood 131 mg/dL (70-99); Magnesium, Blood 1.7 mg/dL (1.6-2.4); Phosphorus, Blood 4.2 mg/dL (2.5-4.9); Potassium, Blood 4.2 mmol/L (3.5-5.5); Sodium, Blood 137 mmol/L (136-145)
--- NOTE | 2021-05-18 07:06 | NUR ---
PT IS IN BED AT THIS TIME WHERE HE REMAINS MUCH OF THE NIGHT AND IS RESTING IN STABLE CONDITION. AAO, ASSISTED WITH HIS CARE AND ADL'S, MEDICATED SCHEDULED. HE ASSISTED IN GETTING UP FOR COMFORT AND PAIN RELIEF. HE IS ENCOURAGED TO CALL FOR HELP WHEN ASSISTANCE IS NEEDED HE IS MONITORED.
--- NOTE | 2021-05-18 17:21 | NUR ---
PATIENT CURRENTLY SITTING UP IN BED WITH NO SIGNS OR SYMPTOMS ACUTE DISTRESS NOTED. COMPLAINS OF GAS PAINS, MEDICATED WITH GAS X SEE EMAR. CONTINUES FENTANYL SIGNAL MAINTAINER PUMP AND IS EFFECTIVE FOR PAIN. PATIENT HAS REFUSED TO WALK IN OSMAN TODAY BUT HAS BEEN UP IN HIS ROOM AD MAAME AND IS STEADY ON FEET. CALL LIGHT AND WATER IN EASY REACH. ABLE TO MAKE NEEDS AND WANTS KNOWN. AAO X 4. TAMARA DRESSINGS INTACT TO ABDOMEN WITH DRAINAGE NOTED TO DRESSINGS WITH DR CARRASCO AWARE. ACTIVE BOWEL SOUNDS NOTED. VOIDING WELL. WILL MONITOR.
--- NOTE | 2021-05-19 06:26 | NUR ---
Pt is resting in bed at this time, AAOx4, condition is stable. C/O generalized discomfort and encouraged to use KIER HAND as indicated. Encouraged to reposition himself in bed and get up out of bed for a short a walk with assistance. Assisted with other care and ADLs, medicated as indicated. Call barraza placed near him and urged to call for help when assistance is needed.
--- NOTE | 2021-05-19 14:48 | NUR ---
SHIFT SUMMARY PT A&OX4, VSS/RA, POD2/TAMARA X2 CHANGED BY SURGEON. PAIN MANAGED WITH KILN STOKER. ULISES CLD, DENIES N&V, PT REP PASSING FLATUS, DENIES BM. AMB INDEPENDENTLY IN ROOM, TO BRP. VOIDING WELL. WILL REPORT TO ONCOMING NOC RN.
--- NOTE | 2021-05-20 06:18 | NUR ---
PT IN BED AT THIS TIME WHERE HE REMAINS MUCH OF THE NIGHT AND IS RESTING COMFORTABLY AND IN STABLE CONDITION. ASSISTED WITH CARE AND ADLS, ASSISTED WITH BATHROOM And TOILETING NEEDS, MEDICATED INDICATED. CALL BLANKENSHIP GIVEN TO HIM AND URGED TO CALL FOR HELP WHEN ASSISTANCE IS NEEDED HE IS MONITORED.
--- NOTE | 2021-05-20 09:00 | NUR ---
DRESSING TO R FOOT CHANGED THIS AM. WOUND CLEASED WITH WOUND REAL ESTATE MANAGEMENT SPECIALIST. NON-ADHERANT PAD APPLIED, 4X4 GAUZE AND KERLEX GAUZE USED OVER WOUND. DRESSING WRAPPED WITH TOM WRAP.
--- NOTE | 2021-05-20 16:00 | NUR ---
DRESSING REAPPLIED TO RLE WOUND PT'S REMOVED RLE DRESSING. SHE WAS FOUND IN THE ROOM CLEANING THE WOUND WITH MOUTH MOISTERIZER SPONGE, KERLEX AND WOUND CLEANSER. SHE WAS NOT WEARING GLOVES AND WAS USING SCISSORS TO CUT LOOSE SKIN OFF OF WOUND. SHE WAS INSTRUCTED TO STOP CLEANING THE WOUND AND EDUCATED ABOUT THE RISK OF NOT WASHING HER HANDS, AND NOT WEARING GLOVES. WHILE STAFF WAS AT BEDSIDE EDUCATING PT SHE PICKED UP SOME GAUZE SHE HAD DROPPED ON THE FLOOR AND HELD IT UNDER THE PT'S FOOT WHILE SHE SPRAYED ADDITIONAL WOUND INTERIOR DESIGN PROFESSOR ON THE FOOT. PT'S WIPED THE LOWER PORTION OF THE FOOT WITH THE SOILED KERLEX GAUZE BUT DID NOT TOUCH THE WOUND. SOILED KERLEX WAS QUICKLY DISCARDED BY THIS RN. AND FOOT CLEANSED. DRESSING REAPPLIED. PT'S CONTINUED TO ASK IF SHE COULD REMOVE NECTROTIC PORTIONS OF PT'S 2ND TOE. SHE WAS INSTRUCTED THAT THIS WAS UNSAFE AND COULD RESULT IN INTRODUCTION OF INFECTION OR BLEEDING. SHE WAS EDUCATED THAT THE DOCTOR MAY DEBRIDE THE WOUND ON SATURDAY IF HE FEELS IT IS NEEDED. PT'S CONTINUED TO EXPRESS THAT SHE FELT SHE COULD DEBRIDE THE WOUND BUT AGREED TO LEAVE IT ALONE AND NOT REMOVE THE DRESSING OR CONTINUE TO REMOVE SKIN FROM AROUND THE WOUND.
--- NOTE | 2021-05-20 19:37 | NUR ---
SHIFT SUMMARY PT IS POD#3 FROM OSTOMY TAKE DOWN. TOLERATING REGULAR DIET. TAKING PO PAIN MEDICATION. PT INDEPENDENT IN ROOM. VSS. WILL MONITOR UNTIL REPORT TO HIRO MCKINNEY.
--- NOTE | 2021-05-21 06:56 | NUR ---
PT IN BED WHERE HE REMAINS MUCH OF THE NIGHT AND IS RESTING COMFORTABLY. ASSISTED WITH CARE AND ADLS, MEDICATED INDICATED. CALL BLANKENSHIP GIVEN TO HIM AND ENCOURAGED TO CALL FOR HELP WHEN ASSISTANCE IS NEEDED HE IS MONITORED.
--- NOTE | 2021-05-21 09:29 | NUR ---
Pt. discharged at 0920 to home. [employer] given prior to discharge for 5/10 abdomoinal discomfort. Friend here to drive patient home. Discharge instructions explained and given to patient, verbalize understanding. Copy of dc instructions given to patient. Personal belongings sent and Prescription for [employer] given. Pt. ambulate to exit with staff.
== END 2021-05-21 09:20 | disposition home or self-care (01) | DRG 331 ==
LOC: SURS 05:39 → PRE IP 07:30 → SURS 11:39
PROVIDERS: ADMIT Surgery
PROC: 0DBM0ZZ Excision of Descending Colon, Open Approach (ICD-10-PCS; principal; 2021-05-17 07:30)
DX: Z43.3 Encounter for attention to colostomy (principal); I10 Essential (primary) hypertension; E78.5 Hyperlipidemia, unspecified; F17.210 Nicotine dependence, cigarettes, uncomplicated; Z98.890 Other specified postprocedural states; Z79.899 Other long term (current) drug therapy; Z28.21 Immunization not carried out because of patient refusal; Z91.09 Other allergy status, other than to drugs and biological substances
CPT/HCPCS: 36415; 80048; 82947; 83735; 84100; 85025; 88305; 94760; A9270; J0690; J1100; J1650; J1885; J2250; J2370; J2405; J2704; J3010; J7120

== ENCOUNTER → 2023-02-06 | Outpatient (CLI) | payer OTHER | END | disposition home or self-care (01) | LOC: LAB SHORT 15:50 → LAB 15:50 | PROVIDERS: Family Medicine | DX: Z12.5 Encounter for screening for malignant neoplasm of prostate (principal) | CPT/HCPCS: G0103 ==

== ENCOUNTER 2023-07-11 11:41 | Day surgery (SDC) | payer OTHER ==
[~2023-07-11] VITALS: Ht 182.9 cm; Wt 85.5 kg
[2023-07-11 15:02] VITALS: BP 159/86
== END 2023-07-11 14:27 | disposition home or self-care (01) ==
LOC: ORSCSDS 11:41
PROVIDERS: Surgery
PROC: 0DBP8ZX Excision of Rectum, Via Natural or Artificial Opening Endoscopic, Diagnostic (ICD-10-PCS; principal; 2023-07-11 13:00)
DX: Z12.11 Encounter for screening for malignant neoplasm of colon (principal); Z86.010 Personal history of colon polyps; K62.1 Rectal polyp; E78.5 Hyperlipidemia, unspecified; K57.30 Diverticulosis of large intestine without perforation or abscess without bleeding; I10 Essential (primary) hypertension; F17.210 Nicotine dependence, cigarettes, uncomplicated; Z79.899 Other long term (current) drug therapy
CPT/HCPCS: 88305; J2704; J7120

== ENCOUNTER → 2025-03-20 | Outpatient (CLI) | payer OTHER | LOC: LAB SHORT 10:20 → LAB 10:20 | DX: N39.0 Urinary tract infection, site not specified (principal); R31.9 Hematuria, unspecified | CPT/HCPCS: 87086 ==